=== PATIENT | male | born 1995 | race Native Hawaiian/Other Pacific Islander ===

== ENCOUNTER 2022-08-02 17:25 | Emergency (ER) | payer OTHER ==
[~2022-08-02] VITALS: Ht 167.6 cm; Wt 72.6 kg
[2022-08-02 17:25] VITALS: TEMP 98
[2022-08-02 19:55] VITALS: BP 126/78
== END 2022-08-02 19:58 | disposition home or self-care (01) ==
LOC: ED 17:25
DX: S06.0X0A Concussion without loss of consciousness, initial encounter (principal); S00.83XA Contusion of other part of head, initial encounter; S60.519A Abrasion of unspecified hand, initial encounter; Y04.8XXA Assault by other bodily force, initial encounter
CPT/HCPCS: 99283; J1885